=== PATIENT | male | born 1995 | race Caucasian/White ===

== ENCOUNTER 2019-10-30 13:24 | Emergency (ER) | payer OTHER ==
[2019-10-30 13:34] VITALS: BMI 43.0
--- NOTE | 2019-10-30 13:58 | PDOC ---
History of Present Illness - General Chief Complaint: Palpitations Stated Complaint: CHEST PAIN Time Seen by Provider: 10/30/19 13:54 History Source: Patient Exam Limitations: No Limitations - History of Present Illness Initial Comments: 10/30/19 13:58 Trey Stapleton is a 24M with history of anxiety presenting with intermittent chest pain. Has had 3 weeks of intermittent sensation of something poking into his middle/ left chest. Sensation is non-reproducible, not exacerbated by exertion, and is not associated with SOB, cough, abd pain. Last time it occurred was last night, patient was sitting at rest, went away without issue. Goes to the gym once a week, lifts weights but pain is not associated with these times. Sensation does not radiate. Denies history of asthma or pulmonary disease, no allergies. No family history of cardiac disease, no thyroid issues, no recent syncope, no prior episodes of this sensation other than one anxiety attack after heavy alcohol drinking one year ago. Used to be a heavy drinker, has since reduced intake to a few beers on the weekend. Former cigarette smoker, 1 pack per week, since quit after child was born. Denies cocaine/IVDA, occasional marijuana use. Says he is an anxious person, not on medication, but worrying about heart problems has caused him to have more anxiety attacks in the last month. Tried to see knife grinder but needed referral, next PMD appointment tomorrow cancelled 12/31, is worried enough to come to ED for evaluation today. Past History - Past Medical History Allergies/Adverse Reactions: Allergies Allergy/AdvReac Type Severity Reaction Status Date / Time No Known Allergies Allergy Verified 10/30/19 13:34 COPD: No - Psycho Social/Smoking Cessation Hx Smoking History: Former smoker Have you smoked in the past 12 months: No Information on smoking cessation initiated: No Review of Systems - Review of Systems Able to Perform ROS?: Yes Constitutional: No: Chills, Fever HEENTM: No: Symptoms Reported Respiratory: Yes: Shortness of Breath (related to anxiety attacks). No: Cough Cardiac (ROS): Yes: Chest Pain. No: Edema, Lightheadedness, Palpitations ABD/GI: No: Symptoms Reported : No: Symptoms Reported Musculoskeletal: No: Symptoms Reported Integumentary: No: Symptoms Reported Neurological: No: Symptoms reported Psychiatric: Yes: Anxiety Endocrine: No: Symptoms Reported Hematologic/Lymphatic: Yes: Symptoms Reported All Other Systems: Reviewed and Negative *Physical Exam - Vital Signs Last Vital Signs Temp Pulse Resp BP Pulse Ox 98.9 F 88 15 142/87 97 10/30/19 17:04 10/30/19 17:04 10/30/19 17:04 10/30/19 17:04 10/30/19 17:04 - Physical Exam General Appearance: Yes: Nourished, Appropriately Dressed. No: Apparent Distress HEENT: positive: EOMI, NICK, Normal Voice, Symmetrical, Pharynx Normal, Hearing Grossly Normal. negative: Scleral Icterus (R), Scleral Icterus (L), Pharyngeal Erythema, Tonsillar Exudate, Tonsillar Erythema Neck: positive: Tender, Trachea midline, Normal Thyroid. negative: Lymphadenopathy (R), Lymphadenopathy (L) Respiratory/Chest: positive: Lungs Clear, Normal Breath Sounds. negative: Chest Tender, Respiratory Distress, Accessory Muscle Use, Crackles, Rales, Rhonchi, Stridor, Wheezing Cardiovascular: positive: Regular Rhythm, Regular Rate. negative: Edema, Murmur Gastrointestinal/Abdominal: positive: Normal Bowel Sounds, Flat, Soft. negative : Tender, Organomegaly, Pulsatile Mass Musculoskeletal: positive: Normal Inspection. negative: CVA Tenderness, Vertebral Tenderness Extremity: positive: Normal Capillary Refill, Normal Inspection, Normal Range of Motion. negative: Tender Integumentary: positive: Normal Color, Dry, Warm Neurologic: positive: Fully Oriented, Alert, Normal Mood/Affect, Normal Response Heart Score/ECG Review - History History: Slightly suspicious - Electrocardiogram EKG: Normal - Age Age: </= 45 - Risk Factors Risk Factors Heart Score: Yes Hx Obesity Based on the list above the patient has:: 1-2 risk factors - Troponin Troponin: </= normal limit - Score Heart Score - Total: 1 ED Treatment Course - LABORATORY CBC & Chemistry Diagram: 10/30/19 14:40 10/30/19 14:40 - ADDITIONAL ORDERS Additional order review: 10/30/19 14:40 RBC 5.48 MCV 85.1 MCHC 35.0 RDW 12.6 MPV 9.3 Neutrophils % 76.2 Lymphocytes % 17.1 Monocytes % 5.7 Eosinophils % 0.5 Basophils % 0.5 - RADIOLOGY Radiology Studies Ordered: Category Date Time Status CHEST PA & LAT [RAD] Stat Radiology 10/30/19 14:19 Completed Medical Decision Making - Medical Decision Making 10/30/19 13:58 Trey Stapleton is a 24M with history of anxiety presenting with intermittent chest pain. Patient has an unspecified chest pain that is not reproducible, unrelated to activity, and is not associated with SOB. No concerning FH of cardiac disease, no thyroid issues. Most likely this pain is MSK in origin. Will evaluate for cardiac etiology via: CMP CBC CP TSH ECG CXR 10/30/19 16:58 CXR unremarkable ECG NSR with HR 93, QTc 427, no evidence of TWI or ischemic changes. Labs WNL, WBC 10.1, ALT 99, neither requires immediate intervention. Initial trop <0.02. No evidence of cardiac disease on exam, history, or labs. Stable to be sent home with PMD and cardiology follow-up. Discharge - Discharge Information Problems reviewed: Yes Clinical Impression/Diagnosis: Palpitations Condition: Stable Disposition: HOME - Admission No - Follow up/Referral Referrals: Armand Fowler MD [Staff Physician] - - Patient Discharge Instructions Patient Printed Discharge Instructions: DI for Atypical Chest Pain Additional Instructions: Today you were evaluated for chest pain. Your blood labs do not show evidence of heart disease. Your chest x-ray does not show any heart problems. Your ECG is completely normal. Your chest pain is likely related to a muscle strain or anxiety. Rest assured that you do not have a dangerous heart disease that needs treatment at this time. Please follow-up with your primary doctor in the next 3 days for further care and a referral to cardiology. If you have issues with being worried, please consider a referral to a counselor or psychiatrist as well. We have provided a referral to Dr. Fowler, one of our cardiologists. If you experience a different chest pain with movement, shortness of breath, nausea, vomiting, or any other new or concerning symptoms, please return to the emergency room. - Post Discharge Activity
[2019-10-30 15:43] LABS: BASO % 0.5 % (0-2.0); EOS % 0.5 % (0-4.5); HEMATOCRIT 46.6 % (35.4-49); HEMOGLOBIN 16.3 GM/dL (11.7-16.9); LYMPH % 17.1 % (8-40); MCH 29.8 pg (25.7-33.7); MEAN CELL VOLUME 85.1 fl (80-96); MEAN PLT VOLUME 9.3 fl (7.5-11.1); MONO % 5.7 % (3.8-10.2); NEUT % 76.2 % (42.8-82.8); PLATELET COUNT 270 K/MM3 (134-434); RBC 5.48 M/mm3 (4.00-5.60); RDW 12.6 % (11.9-15.9); WHITE BLOOD COUNT 10.1 K/mm3 (4.0-10.0)
--- NOTE | 2019-10-30 16:01 | PDOC ---
Attending Attestation - Resident Resident Name: Philip Arriaza - ED Attending Attestation I have performed the following: I have examined & evaluated the patient, The case was reviewed & discussed with the resident, I agree w/resident's findings & plan, Exceptions are as noted - HPI HPI: 10/30/19 16:00 24-year-old male has had some intermittent chest discomfort for several weeks but then today became more of a pinching pain and he became very concerned and came to the emergency department - Physicial Exam PE: 10/30/19 16:08 obese 24 yo male in no acute distress head ncat neck supple lungs cta b/l cvs [id number] abd protuberant no flank pain skin warm and dry neuro axox3,ambulatory - Medical Decision Making 10/30/19 16:09 this pt has a history of panic attacks no congenital h/o heart disease 10/30/19 16:23 Chest x-ray and napd Troponin less than 0.02 10/30/19 17:09 ekg nsr , no ischemia imp atypical chest pain plan d/c home and instructed to followup with PCP
[2019-10-30 16:50] LABS: ALBUMIN 4.3 g/dl (3.4-5.0); ALK PHOS 105 U/L (45-117); ANION GAP 7 MMOL/L (8-16); BILIRUBIN,TOTAL 0.6 mg/dL (0.2-1); BLOOD UREA NITROGEN 11.4 mg/dL (7-18); CALCIUM 9.2 mg/dL (8.5-10.1); CHLORIDE 105 mmol/L (98-107); CO2 25 mmol/L (21-32); CREATININE 0.9 mg/dL (0.55-1.3); GLUCOSE,RANDOM 93 mg/dL (74-106); POTASSIUM 3.9 mmol/L (3.5-5.1); SGOT/AST 40 U/L (15-37); SGPT/ALT 99 U/L (13-61); SODIUM 138 mmol/L (136-145)
[2019-10-30 17:06] VITALS: BP 142/87; PULSE 88; TEMP 98.9
--- NOTE | 2019-10-31 09:25 | EKG ---
Test Reason : Blood Pressure : / mmHG Vent. Rate : 093 BPM Atrial Rate : 093 BPM P-R Int : 134 ms QRS Dur : 092 ms QT Int : 344 ms P-R-T Axes : 008 027 -08 degrees QTc Int : 427 ms NORMAL SINUS RHYTHM NORMAL ECG NO PREVIOUS ECGS AVAILABLE Confirmed by MD Prabhu, Doug ([id number]) on 10/31/2019 9:24:37 AM Referred By: Confirmed By:Doug Pelletier MD
== END 2019-10-30 17:30 | disposition home or self-care (01) ==
LOC: JER 13:24
DX: R07.89 Other chest pain (principal); F41.9 Anxiety disorder, unspecified
CPT/HCPCS: 36415; 71046-TC-FY; 80053; 82550; 84443; 84484; 85025; 93005; 93010; 99282-25